=== PATIENT | male | born 1955 | race Caucasian/White ===

== ENCOUNTER 2017-11-22 20:21 | Emergency (ER) | payer OTHER ==
[2017-11-22 20:51] VITALS: PULSE 92; TEMP 99; BMI 33.2
--- NOTE | 2017-11-22 20:53 | PDOC ---
Rapid Medical Evaluation Time Seen by Provider: 11/22/17 20:48 Medical Evaluation: 11/22/17 20:48 The patient complaints of: rlq pain with vomiting x 3 x 2 hours, no fever, On brief exam: no cva tenderness, vss, + rlq tenderness The patient was ordered for:cbc, comp, lipase, ua , ucx, lactic acid, type ad screen, blood cx The patient will proceed to the ED Discharge Disposition - Diagnosis Abdominal pain - Referrals - Patient Instructions - Post Discharge Activity
[2017-11-22 21:32] LABS: BASO % 0.3 % (0-2.0); HEMATOCRIT 43.1 % (35.4-49); HEMOGLOBIN 14.6 GM/dL (11.7-16.9); LYMPH % 17.5 % (8-40); MCH 29.7 pg (25.7-33.7); MEAN CELL VOLUME 87.6 fl (80-96); MEAN PLT VOLUME 7.8 fl (7.5-11.1); MONO % 3.2 % (3.8-10.2); PLATELET COUNT 271 K/MM3 (134-434); RBC 4.92 M/mm3 (4.00-5.60); RDW 13.2 % (11.9-15.9); WHITE BLOOD COUNT 12.8 K/mm3 (4.0-10.0)
[2017-11-22 21:33] LABS: URINE APPEARANCE CLEAR; URINE BILIRUBIN NEGATIVE (<2.0 mg/dL); URINE COLOR COLORLESS; URINE GLUCOSE (UA) 3+ (NEGATIVE); URINE KETONE TRACE (NEGATIVE); URINE LEUK ESTERASE NEGATIVE (NEGATIVE); URINE NITRITE NEGATIVE (NEGATIVE); URINE PROTEIN NEGATIVE (NEGATIVE); URINE UROBILINOGEN NEGATIVE mg/dL (0.2-1.0)
[2017-11-22 21:36] LABS: EPI CELLS RARE /HPF (FEW); URINE MUCUS RARE
[2017-11-22] MEDS ORDERED: SODIUM CHLORIDE 1,000 ML IV STA (21:36)
[2017-11-22] MEDS ORDERED: morphine CARPU-JECT 4 MG/1 ML DISP.SYRIN IVPUSH ONE (21:36)
[2017-11-22] MEDS ORDERED: ONDANSETRON 4 MG/2 ML VIAL IVPB ONE (21:36)
[2017-11-22 21:58] LABS: ALBUMIN 4.6 g/dl (3.4-5.0); ALK PHOS 65 U/L (45-117); ANION GAP 6 MMOL/L (8-16); BILIRUBIN,TOTAL 0.4 mg/dL (0.2-1); BLOOD UREA NITROGEN 17 mg/dL (7-18); CALCIUM 10.1 mg/dL (8.5-10.1); CHLORIDE 104 mmol/L (98-107); CO2 26 mmol/L (21-32); CREATININE 1.2 mg/dL (0.55-1.3); GLUCOSE,RANDOM 204 mg/dL (74-106); LIPASE 177 U/L (73-393); POTASSIUM 3.6 mmol/L (3.5-5.1); SGOT/AST 24 U/L (15-37); SGPT/ALT 47 U/L (13-61); SODIUM 137 mmol/L (136-145)
[2017-11-22] MEDS ORDERED: ONDANSETRON 4 MG/2 ML VIAL ONE (21:59)
[2017-11-22] MEDS ORDERED: morphine SULFATE 4 MG/ML VIAL ONE (21:59)
--- NOTE | 2017-11-22 22:00 | PDOC ---
Attending Attestation - HPI HPI: 11/22/17 22:44 The patient is a 62 year old male with a significant past medical history of DM , HTN, BPH who presents to ED with complaints of abdominal pain 3 hours ago. Patient said he was in the bathroom and when he got up he felt a sharp pain in his RLQ. Patient states the pain is a 7/10 and radiates to the R testicle. He also reports nausea and 3 episodes of nonbilious vomiting associated with present symptoms. Patient also admits to urinary frequency. Denies fevers, chills, chest pain, diarrhea, constipation, blood in stool or urine, dysuria, weakness, headache. Denies any other symptoms. Documentation prepared by Ramiro Richards, acting as medical staffing coordinator for Vivien Perez DO - Physicial Exam PE: 11/22/17 22:45 Constitutional: Awake, alert, oriented. No acute distress. Head: Normocephalic. Atraumatic Eyes: PERRL. EOMI. Conjunctivae are not pale. ENT: Mucous membranes are moist and intact. Posterior pharynx without exudates or erythema. Uvula midline. Neck: Supple. Full ROM. No lymphadenopathy. Cardiovascular: Regular rate. Regular rhythm. S1, S2 regular. Distal pulses are 2+ and symmetric. Pulmonary/Chest: No evidence of respiratory distress. Clear to auscultation bilaterally No wheezing, rales or rhonchi. Abdominal: + Right lower quadrant tenderness. Soft and non-distended. No rebound, guarding or rigidity. No organomegaly. No palpable masses. Good bowel sounds. Back: + Righ CVA tenderness. Musculoskeletal: No edema. No cyanosis. No clubbing. Full range of motion in all extremities. Nocalf tenderness. Radial/pedal pulses are intact and 2+ bilaterally Skin: Skin is warm and dry. No petechiae. No purpura. Neurological: Alert and oriented to person, place, and time. Cranial nerves II -XII are grossly intact. Normal speech. Strength is grossly symmetric. No sensory deficits. Psychiatric: Good eye contact. Normal interaction, affect and behavior. <Ramiro Richards - Last Filed: 11/22/17 22:44> - Resident Resident Name: Kylah Buck - ED Attending Attestation I have performed the following: I have examined & evaluated the patient, The case was reviewed & discussed with the resident, I agree w/resident's findings & plan, Exceptions are as noted - Medical Decision Making 11/22/17 22:00 I, Dr. Vivien Perez, DO, attest that this document has been prepared under my direction and personally reviewed by me in its entirety. I further attest, that it accurately reflects all work, treatment, procedures and medical decision -making performed by me. 11/22/17 22:39 a/p: 62yo male with acute onset of RLQ pain that radiates to his groin -pt states pain started after having a BM -R flank pain -assoc with n/v -suspect renal colic -poss hx of renal colic in the past -will send labs, ua, CT abd/pelvis without contrast -will medicate for pain and nausea -will monitor and reassess 11/22/17 22:41 ua shows blood in the urine 11/22/17 22:41 pt with pain despite morphine - will give toradol 11/23/17 00:29 pt with 3mm uvj stone has a urologist takes flomax already for his prostate will d/c to home with motrin and zofran for nausea pt ambulatory in the ED with a steady gait cr stable ua without uti stable for d/c to home and outpt follow up with his urologist for further eval of his kidney stone <Vivien Perez - Last Filed: 11/23/17 00:31>
--- NOTE | 2017-11-22 22:03 | PDOC ---
History of Present Illness - General Chief Complaint: Pain Stated Complaint: PAIN, ACUTE Time Seen by Provider: 11/22/17 20:48 History Source: Patient Exam Limitations: No Limitations - History of Present Illness Initial Comments: 11/22/17 21:51 Pt is a 62yo m with with pmh of DM, HTN, BPH presenting to ED with complaints of RLQ pain that stated suddenly today 3 hours ago. Pt said he was in the bathroom and when he got up he felt a sharp pain in his RLQ. 7/10 radiates to the R testicle not exacerbated or alleviated by anything. Associated with nausea and nbnb vomiting x3. Admits to urinary frequency. States he was diagnosed with a kidney stone 2.5 years ago. Last ate at 6pm. Last bm was today. Denies fevers, chills, chst pain, diarrhea, constipation, blood in stool or urine, dysuria, weakness, headache. PCP: Jaun PMH: see hpi PSH: none Meds: flomax, metformin, amlodipine/benzapril social: denies allergies: nkda Past History - Past Medical History Allergies/Adverse Reactions: Allergies Allergy/AdvReac Type Severity Reaction Status Date / Time No Known Allergies Allergy Verified 11/22/17 20:51 Home Medications: Ambulatory Orders Amlodipine Besylate/Benazepril [Lotrel 10-20 mg Capsule] 1 cap PO DAILY Metformin HCl [Metformin HCl ER] 500 mg PO BID 11/22/17 Tamsulosin HCl [Flomax] 0.4 mg PO BID 11/22/17 Ibuprofen [Motrin -] 600 mg PO TID #21 tablet 11/23/17 Ondansetron HCl [Zofran] 4 mg PO TID #21 tablet 11/23/17 COPD: No Diabetes: Yes HTN: Yes - Suicide/Smoking/Psychosocial Hx Smoking History: Never smoked Review of Systems - Review of Systems Constitutional: No: Chills, Fever, Weakness HEENTM: No: Recent change in vision Respiratory: No: Cough, Shortness of Breath, Hemoptysis Cardiac (ROS): No: Chest Pain, Lightheadedness, Palpitations, Syncope ABD/GI: Yes: Nausea, Vomiting, Abdominal cramping (RLQ). No: Blood Streaked Bowels, Constipated, Diarrhea, Rectal Bleeding : Yes: Testicular Pain (R testicle from RLQ). No: Dysuria, Frequency, Flank Pain, Hematuria Musculoskeletal: No: Back Pain, Muscle Pain, Muscle Weakness Neurological: No: Headache, Numbness, Paresthesia, Tingling, Tremors *Physical Exam - Vital Signs Last Vital Signs Temp Pulse Resp BP Pulse Ox 99 F 92 H 18 155/96 98 11/22/17 20:49 11/22/17 20:49 11/22/17 20:49 11/22/17 20:49 11/22/17 20:49 - Physical Exam General Appearance: Yes: Nourished, Appropriately Dressed, Moderate Distress HEENT: positive: EOMI, RAMIRO, Normal Voice, Pharynx Normal, Hearing Grossly Normal. negative: Pale Conjunctivae, Scleral Icterus (R), Scleral Icterus (L) Neck: positive: Trachea midline, Supple. negative: Lymphadenopathy (R), Lymphadenopathy (L) Respiratory/Chest: positive: Lungs Clear, Normal Breath Sounds. negative: Rapid RR, Decreased Breath Sounds, Crackles, Rales, Rhonchi, Stridor Cardiovascular: positive: Regular Rhythm, Regular Rate, S1, S2. negative: Edema , JVD, Murmur Vascular Pulses: Carotid (R): 2+, Carotid (L): 2+, Dorsalis-Pedis (R): 2+, Doralis-Pedis (L): 2+ Gastrointestinal/Abdominal: positive: Normal Bowel Sounds, Soft, Tenderness (RLQ ). negative: Distended, Guarding, Rebound Male Genitalia: positive: normal genitalia. negative: testicular tenderness, testicular mass Musculoskeletal: positive: CVA Tenderness (R). negative: CVA Tenderness (L), Muscle Spasm Extremity: positive: Normal Capillary Refill Integumentary: positive: Normal Color, Dry, Warm Neurologic: positive: clock and watch hands painter II-XII NML intact, Fully Oriented, Alert, Normal Mood/ Affect, Normal Response, Motor Strength /5 ED Treatment Course - LABORATORY CBC & Chemistry Diagram: 11/22/17 21:03 11/22/17 21:03 - ADDITIONAL ORDERS Additional order review: Laboratory Results 11/22/17 21:03 Urine Color Colorless Urine Appearance Clear Urine pH 8.0 Ur Specific [place] 1.007 L Urine Protein Negative Urine Glucose (UA) 3+ H Urine Ketones Trace H Urine Blood 2+ H Urine Nitrite Negative Urine Bilirubin Negative Urine Urobilinogen Negative Ur Leukocyte Esterase Negative Urine WBC (Auto) 4 Urine RBC (Auto) 12 Ur Epithelial Cells Rare Urine Mucus Rare 11/22/17 21:03 RBC 4.92 MCV 87.6 MCHC 34.0 RDW 13.2 MPV 7.8 Neutrophils % 78.0 Lymphocytes % 17.5 Monocytes % 3.2 L Eosinophils % 1.0 Basophils % 0.3 - RADIOLOGY Radiology Studies Ordered: Category Date Time Status SPIRAL- RENAL-STONE CT [CT] Stat CT Scan 11/22/17 21:44 Ordered Medical Decision Making - Medical Decision Making 11/23/17 06:38 62yo m with pmh of htn, dm, bph presenting with RLQ abdominal pain sudden onset. Vitals: wnl PE: RLQ tenderness, R CVA tenderness, normal testicular exam High suspicion for renal colic given patient presentation and location of pain. will consider appendicitis, aaa, cholecystitis PT given zofran, morhpine. Ordered cbc, cmp, lipase, ua, and spiral ct. Pt given toradol. Labs wnl. UA negative for infection. SPiral ct positive for 3mm stone at R UVJ. Pt reported relief after toradol. UA negative for infection, therefore low suspicion for septic stone. Symptoms controlled, hemodynamically stable, has good f/u. can be dc home. Pt agreed with plan. Given rx for ibuprofen and zofran and strainer. Pt agreed with plan and understood return precautions. *DC/Admit/Observation/Transfer Diagnosis at time of Disposition: Kidney stone on right side - Discharge Dispostion Disposition: HOME Condition at time of disposition: Improved Decision to Admit order: No - Prescriptions Prescriptions: Ibuprofen [Motrin -] 600 mg PO TID #21 tablet Ondansetron HCl [Zofran] 4 mg PO TID #21 tablet - Referrals Referrals: ON STAFF,NOT [Primary Care Provider] - - Patient Instructions Printed Discharge Instructions: DI for Kidney Stones Additional Instructions: You were seen here today for evaluation of right lower abdominal pain. The CT scan showed you have a kidney stone. Please stay hydrated and continue to take Flomax. I have prescribed medications for you to take for the pain and nausea. I have also given you a strainer for you to use to catch the stone. Please follow up with your urologist. I recommend you give him or her the results of the CT scan. Please come back to the emergency room if: pain gets worse, there is blood in the urine, you develop fever, you have pain when urinating or if any new concerning symptom develops. Thank you - Post Discharge Activity
[2017-11-22] MEDS ORDERED: KETOROLAC TROMETHAMINE 30 MG/1 ML VIAL IVPUSH ONE (22:38)
[2017-11-22] MEDS ORDERED: KETOROLAC TROMETHAMINE 30 MG/1 ML VIAL ONE (22:42)
[2017-11-23 00:45] VITALS: BP 134/84
--- NOTE | 2017-11-24 23:04 | PDOC ---
Patient Follow-up (Call Back) - Post ED Follow - Up Condition at time of discharge: Improved Disposition at time of original discharge: HOME Reason for Call Back: Abnwl. Microbiology (Received call from microbiology lab reporting mats 02/15 bottles and blood cultures grew gram-positive cocci in clusters. This is likely a contaminant. I will wait for official identification of organism.)
== END 2017-11-23 00:45 | disposition home or self-care (01) ==
LOC: JER 20:21
PROC: 3E033GC Introduction of Other Therapeutic Substance into Peripheral Vein, Percutaneous Approach (ICD-10-PCS; principal; 2017-11-22)
PROC: 3E033NZ Introduction of Analgesics, Hypnotics, Sedatives into Peripheral Vein, Percutaneous Approach (ICD-10-PCS; 2017-11-22)
PROC: 3E0333Z Introduction of Anti-inflammatory into Peripheral Vein, Percutaneous Approach (ICD-10-PCS; 2017-11-22)
DX: N20.0 Calculus of kidney (principal); Z87.442 Personal history of urinary calculi; N40.0 Benign prostatic hyperplasia without lower urinary tract symptoms; I10 Essential (primary) hypertension; E11.9 Type 2 diabetes mellitus without complications; Z79.84 Long term (current) use of oral hypoglycemic drugs
CPT/HCPCS: 36415; 74176; 80053; 81003; 81015; 83605; 83690; 83735; 85025; 86850; 86900; 86901; 87040; 87076; 87086; 99282-25; J7030

== ENCOUNTER 2020-03-30 04:57 | Day surgery (SDC) | payer OTHER ==
[2020-03-26 15:49] VITALS: BMI 32.9
[2020-03-30 09:18] VITALS: TEMP 97.5
[2020-03-30 10:21] VITALS: BP 118/72; PULSE 73
== END 2020-03-30 09:55 | disposition home or self-care (01) ==
LOC: JASU-ENDO 04:57
PROVIDERS: ATTEND Internal Medicine Gastroenterology
PROC: 0DJD8ZZ Inspection of Lower Intestinal Tract, Via Natural or Artificial Opening Endoscopic (ICD-10-PCS; principal; 2020-03-30 09:15)
DX: Z12.11 Encounter for screening for malignant neoplasm of colon (principal)